=== PATIENT | male | born 1945 | race Caucasian/White ===

== ENCOUNTER 2016-06-22 16:08 | Inpatient (IN) | payer OTHER ==
[2016-06-22] MEDS ORDERED: ZOFRAN INJ 4 MG VIAL IM ONE (16:31)
--- NOTE | 2016-06-22 16:32 | DR.GENAD ---
HPI - PCP Primary Care Physician: bear - Complaint/Symptoms Chief Complaint:: patient stated he started vomiting since lunch today and having back pain. - Nurses notes reviewed Nurses Notes Review: Yes - Source History Provided: Patient - Mode of Arrival Mode of Arrival: Ambulatory - Timing Onset of Chief Complaint: 06/22/16 Came on: Gradually - Duration Duration: Since Onset How lon Duration: Hours - Location Location: STOMACH - Severity Severity: Moderate - Modifying Factors Worsens:: FOOD - Associated Signs and Symptoms Associated Signs and Symptoms: BACK PAIN PMH - PMH Past Medical History: Yes Past Medical History: Diabetes Past Surgical History: No - Family History History of Family Medical Conditions: No - Social History Does patient currently use any type of tobacco product: No Have you used tobacco products in the last 12 months: No Type of Tobacco Use: None Does any household member use tobacco: No Alcohol Use: None Do you use any recreational Drugs:: No Lives With: Family Lives Where: Home - infectious screening In the last 2 months have you had wt loss of >10#?: NO Have you had fever, night sweats or hemotysis?: No Have you traveled outside the country in the last 6 months?: No Isolation: Standard ROS - Review of Systems Constitutional: Weakness Eyes: No Symptoms Reported ENTM: No Symptoms Reported Respiratoy: No Symptoms Reported Cardiovascular: No Symptoms Reported Gastrointestinal/Abdominal: Nausea, Vomiting Genitourinary: No Symptoms Reported Neurological: No Symptoms Reported Musculoskeletal: No Symptoms Reported Integumentary: No Symptoms Reported Hematologic/Lymphatic: No Symptoms Reported Psychiatric: No Symptoms Reported PE - Vital Signs Vitals: Temperature 98.9 F Pulse Rate 61 Respiratory Rate 16 Blood Pressure 113/72 O2 Sat by Pulse Oximetry 100 - General Limitations: No Limitations General Appearance: Alert, In No Apparent Distress - Head Head Exam: Normal Inspection - Eyes Eye exam: EOMI, Nystagmus. negative: Scleral Icterus, Conjunctival Injection - ENT ENT Exam: Mucous Membranes Dry External Ear Exam: Normal External Inspection - Neck Neck Exam: Normal Inspection, Full ROM, Trachea Midline - Respiratory Respiratory Exam: negative: Accessory Muscle Use, Respiratory Distress Respiratory Exam: Bilateral Clear to Auscultation - Cardiovascular Cardiovascular Exam: Regular Rate - Abdominal Exam Abdominal Exam: Normal Inspection, Normal Bowel Sounds, Soft, Distention. negative: Tenderness, Guarding, Rebound - Extremities Extremities Exam: Normal Inspection, Full ROM - Back Back Exam: Normal Inspection - Neurologic Neurological Exam: Alert, Oriented X3, CN II-XII Intact - Psychiatric Psychiatric Exam: Flat Affect - Skin Skin Exam: Intact, Normal Color Course - Consultation Called: 19:50 Call Returned: 19:52 Consultation Comments: CASE DISCUSSED WITH dr. Cardona ADMIT FOR IVF AND ANTIEMETICS ROR - Labs Reviewed Result Diagrams: 06/22/16 16:50 06/22/16 16:50 Laboratory: WBC 13.1 X10^3/uL (3.6-10.0) H 06/22/16 16:50 RBC 3.89 X10^6/uL (4.7-6.0) L 06/22/16 16:50 Hgb 15.5 g/dL (13.5-18.0) 06/22/16 16:50 Hct 45.1 % (42.0-54.0) 06/22/16 16:50 MCV 115.8 fL (80.0-100.0) H 06/22/16 16:50 MCH 39.9 pg (27.0-34.0) H 06/22/16 16:50 MCHC 34.4 g/dL (33.0-35.0) 06/22/16 16:50 RDW 14.3 % (11.6-16.5) 06/22/16 16:50 Plt Count 364 X10^3/uL (150.0-450.0) 06/22/16 16:50 Plt Count Comment Adequate (ADEQUATE) 06/22/16 16:50 MPV 8.1 fL (7.4-11.0) 06/22/16 16:50 Neut % 91.7 % (42.0-75.0) H 06/22/16 16:50 Lymph % 5.9 % (21.0-51.0) L 06/22/16 16:50 [place] % 2.1 % (0.0-13.0) 06/22/16 16:50 Eos % 0.0 % (0.9-2.9) L 06/22/16 16:50 Baso % 0.3 % (0.2-1.0) 06/22/16 16:50 Neut # 12.0 x10^3/uL (2.2-4.8) H 06/22/16 16:50 Lymph # 0.8 X10^3/uL (1.3-2.9) L 06/22/16 16:50 [place] # 0.3 x10^3/uL (0.3-0.8) 06/22/16 16:50 Eos # 0.0 x10^3/uL (0.0-0.2) 06/22/16 16:50 Baso # 0.0 X10^3/uL (0.0-0.1) 06/22/16 16:50 Absolute Nucleated RBC 0.0 /100WBC 06/22/16 16:50 Total Counted 100 06/22/16 16:50 Neutrophils % (Manual) 83 % (39-76) H 06/22/16 16:50 Band Neutrophils % 7 % (0-10) 06/22/16 16:50 Lymphocytes % (Manual) 8 % (13-43) L 06/22/16 16:50 Monocytes % (Manual) 2 % (4-9) L 06/22/16 16:50 Plt Morphology Comment Normal (NORMAL) 06/22/16 16:50 RBC Morphology Abnormal (NORMAL) 06/22/16 16:50 Macrocytosis 3+ A 06/22/16 16:50 Sodium 137 mmol/L (136-145) 06/22/16 16:50 Corrected Sodium 142 mmol/L (136-145) 06/22/16 16:50 Potassium 3.8 mmol/L (3.5-5.1) 06/22/16 16:50 Chloride 98 mmol/L (98-107) 06/22/16 16:50 Carbon Dioxide 22.6 mmol/L (21-32) 06/22/16 16:50 BUN 22 mg/dL (7-18) H 06/22/16 16:50 Creatinine 1.18 mg/dL (0.70-1.30) 06/22/16 16:50 Est GFR (MDRD) Af Amer > 60 (>60) 06/22/16 16:50 Est GFR (MDRD) Non-Af > 60 (>60) 06/22/16 16:50 Glucose 305 mg/dL (65-99) H 06/22/16 16:50 Calcium 9.2 mg/dL (8.5-10.1) 06/22/16 16:50 Acetone, Semi-Quant Negative (NEGATIVE) 06/22/16 19:20 - XRAY XRAY Interpreted by: Radiologist XRAY Findings: aas: nad - Diagnosis Discharge Problem: Intractable vomiting Qualifiers: Vomiting type: unspecified Nausea presence: with nausea Qualified Code(s): R11.2 - Nausea with vomiting, unspecified - Discharge Plan Condition: Stable - Follow ups/Referrals Follow ups/Referrals: LUCILA BARAHONA [Primary Care Provider] - 3 days - Instructions
[2016-06-22] MEDS ORDERED: ZOFRAN INJ 4 MG VIAL IVP ONE ×2 (16:39→17:51)
[2016-06-22] MEDS ORDERED: NS 1000 ML 1,000 ML IV ONE (16:39)
[2016-06-22] MEDS ORDERED: NS 1000 ML 1,000 ML ONE (16:45)
[2016-06-22] MEDS ORDERED: ZOFRAN INJ 4 MG VIAL ONE ×2 (16:45→18:26)
[2016-06-22 17:03] LABS: BASOPHILS % (AUTO) 0.3 % (0.2-1.0); HEMATOCRIT 45.1 % (42.0-54.0); HEMOGLOBIN 15.5 g/dL (13.5-18.0); LYMPHOCYTES # (AUTO) 0.8 X10^3/uL (1.3-2.9); LYMPHOCYTES % (AUTO) 5.9 % (21.0-51.0); MEAN CORPUSCULAR HEMOGLOBIN 39.9 pg (27.0-34.0); MEAN CORPUSCULAR HGB CONC 34.4 g/dL (33.0-35.0); MEAN CORPUSCULAR VOLUME 115.8 fL (80.0-100.0); MEAN PLATELET VOLUME 8.1 fL (7.4-11.0); MONOCYTES # (AUTO) 0.3 x10^3/uL (0.3-0.8); MONOCYTES % (AUTO) 2.1 % (0.0-13.0); NEUTROPHILS % (AUTO) 91.7 % (42.0-75.0); PLATELET COUNT 364 X10^3/uL (150.0-450.0); RED BLOOD COUNT 3.89 X10^6/uL (4.7-6.0); RED CELL DISTRIBUTION WIDTH 14.3 % (11.6-16.5); WHITE BLOOD COUNT 13.1 X10^3/uL (3.6-10.0)
[2016-06-22 17:08] LABS: BLOOD UREA NITROGEN 22 mg/dL (7-18); CALCIUM 9.2 mg/dL (8.5-10.1); CARBON DIOXIDE 22.6 mmol/L (21-32); CHLORIDE 98 mmol/L (98-107); COR NA(FOR HYPERGLY) 142 mmol/L (136-145); CREATININE 1.18 mg/dL (0.70-1.30); GLUCOSE 305 mg/dL (65-99); SODIUM 137 mmol/L (136-145); eGFR BLACK RACES > 60 (>60); eGFR NON BLACK RACES > 60 (>60)
[2016-06-22] MEDS ORDERED: HUMULIN R IV ONE (17:16)
[2016-06-22 17:18] LABS: BAND NEUTROPHILS % 7 % (0-10); PLATELET MORPHOLOGY COMMENT NORMAL (NORMAL)
[2016-06-22] MEDS ORDERED: FLAGYL IV PREMIX 500 MG BAG 500 MG/100 ML BAG IV ONE ×2 (17:24→18:21)
[2016-06-22] MEDS ORDERED: HUMULIN R ONE (18:27)
--- NOTE | 2016-06-22 19:22 | RAD ---
ACUTE ABDOMINAL SERIES CLINICAL HISTORY: 71-year-old male with vomiting and abdominal distention. COMPARISON: None. FINDINGS: PA chest radiograph demonstrates normal cardiopericardial silhouette. There is no focal consolidatio n, pleural effusion or pneumothorax. Pulmonary vascularity is normal. Abdominal radiographs demonstrate a nonobstructive bowel gas pattern. Gas and stool are seen through out the colon. There is no small bowel distention. There is no radiographic evidence of pneumoperito neum. Imaged osseous structures are intact. Soft tissues are unremarkable. IMPRESSION: 1. No acute cardiopulmonary process. 2. Nonobstructive bowel gas pattern without radiographic evidence of pneumoperitoneum. Reported By:
[2016-06-22] MEDS ORDERED: ZOFRAN INJ 4 MG VIAL IVP PRN (19:59)
[2016-06-22] MEDS ORDERED: SNACK - Diabetic Appropriate PO SCH (20:00)
[2016-06-22 20:55] LABS: BILIRUBIN,URINE 2+ (NEGATIVE); BLOOD/HEMOGLOBIN,URINE 1+ (NEGATIVE); GLUCOSE, URINE NEGATIVE (NEGATIVE); KETONES,URINE NEGATIVE (NEGATIVE); LEUKOCYTE ESTERASE ,URINE 1+ (NEGATIVE); NITRITES,URINE NEGATIVE (NEGATIVE); PROTEIN,URINE 2+ (NEGATIVE); UROBILINOGEN,URINE 2+ (NORMAL)
[2016-06-22 20:58] LABS: APPEARANCE,URINE SLIGHTLY HAZY (CLEAR); COLOR,URINE AMBER (YELLOW)
[2016-06-22 21:04] LABS: BACTERIA,URINE NEGATIVE /HPF (NEGATIVE); RBC,URINE RARE /HPF (NEGATIVE); SQUAMOUS EPITHELIAL CELL,UR RARE /HPF (NEGATIVE)
[2016-06-22 21:59] VITALS: BMI 33.0
[2016-06-22] MEDS ORDERED: PHENERGAN INJ 25 MG IV PRN (22:19)
[2016-06-22] MEDS: NS 1000 ML 1,000 ML IV SCH (22:32)
[2016-06-22] MEDS: HUMULIN R SUBCUT PRN (23:53)
[2016-06-23 02:17] LABS: BILIRUBIN,URINE 1+ (NEGATIVE); BLOOD/HEMOGLOBIN,URINE 1+ (NEGATIVE); GLUCOSE, URINE 2+ (NEGATIVE); KETONES,URINE 1+ (NEGATIVE); LEUKOCYTE ESTERASE ,URINE 1+ (NEGATIVE); NITRITES,URINE NEGATIVE (NEGATIVE); PROTEIN,URINE 2+ (NEGATIVE); UROBILINOGEN,URINE 2+ (NORMAL)
[2016-06-23 02:51] LABS: APPEARANCE,URINE CLOUDY (CLEAR); COLOR,URINE AMBER (YELLOW)
[2016-06-23 02:52] LABS: BACTERIA,URINE 1+ /HPF (NEGATIVE); RBC,URINE 0-3 /HPF (NEGATIVE); SQUAMOUS EPITHELIAL CELL,UR RARE /HPF (NEGATIVE)
[2016-06-23] MEDS: NS 1000 ML 1,000 ML IV SCH ×4 (05:48→19:31)
[2016-06-23 06:09] LABS: BASOPHILS % (AUTO) 0.2 % (0.2-1.0); HEMATOCRIT 48.8 % (42.0-54.0); HEMOGLOBIN 16.7 g/dL (13.5-18.0); LYMPHOCYTES # (AUTO) 0.3 X10^3/uL (1.3-2.9); LYMPHOCYTES % (AUTO) 2.6 % (21.0-51.0); MEAN CORPUSCULAR HEMOGLOBIN 39.9 pg (27.0-34.0); MEAN CORPUSCULAR HGB CONC 34.1 g/dL (33.0-35.0); MEAN CORPUSCULAR VOLUME 116.8 fL (80.0-100.0); MEAN PLATELET VOLUME 8.4 fL (7.4-11.0); MONOCYTES # (AUTO) 0.4 x10^3/uL (0.3-0.8); MONOCYTES % (AUTO) 2.8 % (0.0-13.0); NEUTROPHILS # (AUTO) 12.3 x10^3/uL (2.2-4.8); NEUTROPHILS % (AUTO) 94.4 % (42.0-75.0); PLATELET COUNT 309 X10^3/uL (150.0-450.0); RED BLOOD COUNT 4.18 X10^6/uL (4.7-6.0); WHITE BLOOD COUNT 13.1 X10^3/uL (3.6-10.0)
[2016-06-23] MEDS: HUMULIN R SUBCUT PRN ×3 (06:15→17:57)
[2016-06-23 06:31] LABS: ALANINE AMINOTRANSFERASE 126 Units/L (12-78); ALBUMIN 3.5 g/dL (3.4-5.0); ALKALINE PHOSPHATASE 71 Units/L (46-116); ASPARTATE AMINO TRANSFERASE 88 Units/L (15-37); BLOOD UREA NITROGEN 30 mg/dL (7-18); CALCIUM 7.8 mg/dL (8.5-10.1); CARBON DIOXIDE 17.1 mmol/L (21-32); CHLORIDE 101 mmol/L (98-107); COR NA(FOR HYPERGLY) 144 mmol/L (136-145); CREATININE 1.63 mg/dL (0.70-1.30); GLUCOSE 384 mg/dL (65-99); SODIUM 137 mmol/L (136-145); eGFR BLACK RACES 54 (>60); eGFR NON BLACK RACES 45 (>60)
[2016-06-23 07:04] LABS: BAND NEUTROPHILS % 8 % (0-10); PLATELET MORPHOLOGY COMMENT NORMAL (NORMAL)
[2016-06-23] MEDS: CARDIZEM CD 240 MG PO SCH ×2 (07:23→10:34)
[2016-06-23] MEDS ORDERED: [UNRECOGNIZED DRUG - OTHER] PO SCH (10:15)
[2016-06-23] MEDS ORDERED: [UNRECOGNIZED DRUG - OTHER] PO SCH (10:15)
[2016-06-23] MEDS ORDERED: HYDROCHLOROTHIAZIDE 25 MG TAB PO SCH (11:00)
[2016-06-23] MEDS ORDERED: VICTOZA SC SCH (11:00)
[2016-06-23] MEDS ORDERED: HYDREA PO SCH (11:00)
[2016-06-23] MEDS ORDERED: ACCUPRIL PO SCH (11:00)
[2016-06-23] MEDS ORDERED: FOLIC ACID TAB 1 MG PO SCH (11:00)
[2016-06-23] MEDS ORDERED: SINGULAIR TAB 10 MG PO SCH (11:00)
[2016-06-23] MEDS ORDERED: PRILOSEC PO SCH (11:00)
[2016-06-23] MEDS ORDERED: LOPRESSOR INJ 5 MG AMP IVP ONE ×2 (12:14→16:00)
[2016-06-23 12:24] LABS: CKMB % 1.1 % (<4); CREATINE KINASE 113 Units/L (39-308); CREATINE KINASE MB 1.2 ng/mL (0-4.0); TROPONIN I < 0.02 ng/mL (0-1.5)
[2016-06-23 12:44] LABS: AMYLASE 592 Units/L (25-115)
[2016-06-23 12:59] LABS: LIPASE 5508 Units/L (73-393)
[2016-06-23] MEDS ORDERED: PROTONIX INJ 40 MG VIAL 80 MG in NS 100 ML IV 80 ML IV SCH (15:00)
--- NOTE | 2016-06-23 15:03 | DR.H&P ---
H&P - History & Physical for Day of: H&P Date: 06/22/16 - Chief Complaint Chief Complaint: NAUSEA, VOMITING - Allergies Allergies/Adverse Reactions: Allergies Allergy/AdvReac Type Severity Reaction Status Date / Time No Known Drug Allergy Allergy Verified 06/22/16 16:13 - History of Present Illness History of Present Illness: THIS IS A 71 YEAR OLD PATIENT, WHO IS FOLLOWED IN OUR OFFICE BY ZULEIMA ALMONTE. PATIENT PRESENTS TO THE EMERGENCY ROOM REPORTING NAUSEA WITH VOMITING SINCE LUNCH TODAY. HE ALSO REPORTS ABDOMEN AND BACK PAIN. HE REPORTS SYMPTOMS WORSEN WITH FOOD. SYMPTOMS HAVE BEEN ON-GOING FOR 5 HOURS. PATIENT REPORTS HE IS UNABLE TO HOLD DOWN ANY PO FLUIDS. PATIENT IS NOTED WITH RIGHT UPPER QUADRANT PAIN UPON PALPATION. PATIENT RATES ABDOMINAL PAIN AN 8 ON A 1-TO-10 PAIN SCALE. CBC WNL EXCEPT: WBC 13.1. BMP WNL EXCEPT: BUN 22, GLUCOSE 305. ACUTE ABDOMINAL SERIES REPORTS NO ACUTE CARDIOPULMONARY PROCESS; NONOBSTRUCTIVE BOWEL GAS PATTERN WITHOUT RADIOGRAPHIC EVIDENCE OF PNEUMOPERITONEUM. PATIENT RECEIVED AN IV FLUID BOLUS, FLAGYL IV, AND TWO DOSES OF ZOFRAN IV IN THE EMERGENCY ROOM. WE WILL ADMIT PATIENT FOR FURTHER TREATMENT AND EVALUATION. PATIENT WILL BE STARTED ON IV FLUIDS AND ANTIEMETICS. - Past Medical History Past Medical History: Diabetes, Dyslipidemia, GERD, Hypertension Additional Medical History: Skin Cancer, BPH, Sinus Tachycardia - Past Surgical History Surgical History: No History - Family History Family Medical History: Cancer Family History Comment: Father Lung Cancer - Social History Does patient currently use any type of tobacco product: No Have you used tobacco products in the last 12 months: No Type of Tobacco Use: None Does any household member use tobacco: No Alcohol Use: None Drug Use: None - Medications Home Medications: Folic Acid [Folic Acid] 1 mg PO DAILY 06/22/16 [History Confirmed 06/22/16] Hydrochlorothiazide [Hydrochlorothiazide] 25 mg PO DAILY 06/22/16 [History Confirmed 06/22/16] RX: Aspirin [Aspirin Adult Low Dose] 81 mg PO HS 06/22/16 [History Confirmed ] RX: Diltiazem HCl Extended Release [Diltiazem HCl ER] 240 mg PO DAILY 06/22/16 [ History Confirmed 06/22/16] RX: Hydroxyurea 3 cap PO DAILY 06/22/16 [History Confirmed 06/22/16] RX: Liraglutide [Victoza] 6 units SC DAILY 06/22/16 [History Confirmed 06/22/16] RX: Metformin HCl 1 tab PO BID 06/22/16 [History Confirmed 06/22/16] RX: Metoprolol Succinate [Toprol Xl] 25 mg PO HS 06/22/16 [History Confirmed ] RX: Montelukast Sodium [Singulair] 1 tab PO DAILY 06/22/16 [History Confirmed ] RX: Omeprazole 1 cap PO DAILY 06/22/16 [History Confirmed 06/22/16] RX: Quinapril HCl 10 mg PO DAILY 06/22/16 [History Confirmed 06/22/16] RX: Rivaroxaban [Xarelto] 20 mg PO DAILY 06/22/16 [History Confirmed 06/22/16] Simvastatin [Simvastatin] 20 mg PO HS 06/22/16 [History Confirmed 06/22/16] Tamsulosin HCl [Tamsulosin HCl] 0.4 mg PO HS 06/22/16 [History Confirmed ] - Review of Systems Constitutional: Weakness, Malaise Eyes: No Symptoms Reported. denies: Pain, Vision Change, Conjunctivae Inflammation, Eyelid Inflammation, Redness ENT: No Symptoms Reported. denies: Ear Pain, Ear Discharge, Nose Pain, Nose Discharge, Nose Congestion, Mouth Pain, Mouth Swelling, Throat Pain, Throat Swelling Respiratory: No Symptoms Reported. denies: Cough, Shortness of Breath, Hemoptysis, SOB with Excertion, Pleuritic Pain, Sputum, Wheezing Cardiovascular: No Symptoms Reported. denies: Chest Pain, Palpitations, Orthopnea, Paroxysmal Noc. Dyspnea, Edema, Light Headedness Gastrointestinal: Nausea, Vomiting, Abdominal Pain. denies: Diarrhea, Constipation, Melena, Hematochezia Genitourinary: No Symptoms Reported. denies: Dysuria, Frequency, Incontinence, Hematuria, Retention Musculoskeletal: Back Pain. denies: Shoulder Pain, Arm Pain, Hand Pain, Leg Pain, Foot Pain, Neck Pain Skin: No Symptoms Reported. denies: Rash, Lesions, Jaundice, Bruising, Wound, Ecchymosis Neurological: No Symptoms Reported. denies: Weakness, Numbness, Incoordination , Change in Speech, Confusion, Seizures - Physical Exam Vital Signs: Temperature 97.7 F Pulse Rate [Right Radial] 129 Respiratory Rate 34 Blood Pressure [Left Arm] 111/75 O2 Sat by Pulse Oximetry 95 Oriented: Normal, Time, Person, Place Eyes: Normal. negative: Blurred Vision, Diplopia, Discharge, Pain, Redness, Photophobia Ear: Normal. negative: Swelling, Ecchymosis, Hemotypanum, Abrasion, Laceration Nose: Normal. negative: Injected, Discharge, Blood Throat: Dry. negative: Tonsillar Hypertrophy, Exudate Respiratory: Clear Throughout Cardiovascular: Normal. negative: Murmur, Edema : Normal. negative: Dysuria, Hematuria, Frequency, Discharge, Testicular Pain Auscultation: Bowel Sounds: Decreased. negative: Bruit Palpation: Normal. negative: Spleen Enlarged, Liver Enlarged, Mass Pulsatile Tenderness: RUQ, Severe. negative: Rebound, Guarding, Rigidity Skin: Decreased Turgur. negative: Diaphoresis, Wound, Bruising, Ecchymosis Musculoskeletal: Instability Psychiatric: Normal Mood Description: Calm, Appropriate Affect: Normal Speech Pattern: Clear, Appropriate - Assessment/Plan (1) Intractable vomiting Qualifiers: Vomiting type: unspecified Nausea presence: with nausea Qualified Code(s) : R11.2 - Nausea with vomiting, unspecified Status: Acute Plan: ADMIT PATIENT, START IV FLUIDS AND ANTIEMETICS, MONITOR LABS. (2) RUQ abdominal pain Status: Acute Plan: ABOVE. (3) Dehydration Status: Acute Plan: ABOVE. (4) Sinus tachycardia Status: Chronic Plan: CONTINUE CARDIZEM, MONITOR. (5) Diabetes type 2, uncontrolled Qualifiers: Diabetes mellitus complication status: with hyperglycemia Diabetes mellitus complication detail: D Diabetic retinopathy severity: D Proliferative retinopathy type: P Diabetes mellitus macular edema: D Diabetes mellitus regional sales coordinator insulin use: without regional sales coordinator use Laterality: L Chronic kidney disease stage: C Qualified Code(s): E11.65 - Type 2 diabetes mellitus with hyperglycemia Status: Chronic Plan: START OTBS WITH INSULIN R SLIDING SCALE COVERAGE, MONITOR. (6) Hypertension Qualifiers: Hypertension type: essential hypertension Qualified Code(s): I10 - Essential (primary) hypertension Status: Chronic (7) Hyperlipidemia Qualifiers: Hyperlipidemia type: mixed hyperlipidemia Qualified Code(s): E78.2 - Mixed hyperlipidemia Status: Chronic (8) BPH (benign prostatic hyperplasia) Qualifiers: Prostatic enlargement morphology: non-nodular Lower urinary tract symptom presence: symptoms present Qualified Code(s): N40.1 - Benign prostatic hyperplasia with lower urinary tract symptoms Status: Chronic
--- NOTE | 2016-06-23 15:29 | PCM.PROG ---
Progress Note - Progress Note for Day of Date: 06/23/16 - Subjective Subjective: PATIENT IS REPORTING RIGHT UPPER QUADRANT ABDOMINAL PAIN CONTINUES. HE IS NOTED WITH SEVERE TENDERNESS UPON PALPATION TO RUQ AND GENERALIZED ABDOMINAL DISTENTION. HE CONTINUES WITH NAUSEA AND VOMITING AND CONTINUES ON IV ZOFRAN. HEART RATE TACHYCARDIC, RATE 140'S. CBC WNL EXCEPT: WBC 13.1. CMP WNL EXCEPT: BUN/CREAT 30/1.63, GFR 45, GLUCOSE 384, CALCIUM 7.8, TOT BILIRUBIN 1.20, AST 88, ALT 126, AMYLASE 592, LIPASE 5508. WE WILL OBTAIN CT OF ABD/ PELVIS TODAY, CARDIAC ENZYMES AND EKG'S, ADMINISTER ONE DOSE OF LOPRESSOR 5MG IV FOR TACHYCARDIA. WE WILL ALSO OBTAIN A GALLBLADDER US AND HOLD NPO. WE WILL CONITNUE IV FLUIDS AND ANTIEMETICS. - Past Medical Family Social History Past Med/Fam/Surg Hx: No changes since H&P Allergies: Allergies No Known Drug Allergy Allergy (Verified 06/22/16 16:13) - Review of Systems ROS: No change since H&P - Vital Signs and I&O's Vital Signs: Temperature 97.7 F Pulse Rate [Right Radial] 129 Respiratory Rate 34 Blood Pressure [Left Arm] 111/75 O2 Sat by Pulse Oximetry 95 Intake and Output: Intake & Output 06/21/16 06/22/16 06/23/16 06/24/16 11:59 11:59 11:59 11:59 Intake Total 615 Balance 615 - Physical Exam Oriented: Normal, Time, Person, Place Eyes: Normal. negative: Blurred Vision, Diplopia, Discharge, Pain, Redness, Photophobia Ear: Normal. negative: Swelling, Ecchymosis, Hemotypanum, Abrasion, Laceration Nose: Normal. negative: Injected, Discharge, Blood Throat: Dry. negative: Tonsillar Hypertrophy, Exudate Respiratory: Normal Cardiovascular: Normal. negative: Murmur, Edema : Normal. negative: Dysuria, Hematuria, Frequency, Discharge, Testicular Pain Auscultation: Bowel Sounds: Decreased. negative: Bruit Palpation: Normal. negative: Spleen Enlarged, Liver Enlarged, Mass Pulsatile Tenderness: RUQ, Severe, Other (Abdominal distention). negative: Rebound, Guarding, Rigidity Skin: Decreased Turgur. negative: Diaphoresis, Wound, Bruising, Ecchymosis Musculoskeletal: Instability Psychiatric: Normal Mood Description: Calm, Appropriate Affect: Normal Speech Pattern: Clear, Appropriate - Laboratory and Diagnostics Result Diagrams: 06/23/16 04:40 06/23/16 04:40 Labs: Laboratory WBC 13.1 X10^3/uL (3.6-10.0) H 06/23/16 04:40 RBC 4.18 X10^6/uL (4.7-6.0) L 06/23/16 04:40 Hgb 16.7 g/dL (13.5-18.0) 06/23/16 04:40 Hct 48.8 % (42.0-54.0) 06/23/16 04:40 MCV 116.8 fL (80.0-100.0) H 06/23/16 04:40 MCH 39.9 pg (27.0-34.0) H 06/23/16 04:40 MCHC 34.1 g/dL (33.0-35.0) 06/23/16 04:40 RDW 14.0 % (11.6-16.5) 06/23/16 04:40 Plt Count 309 X10^3/uL (150.0-450.0) 06/23/16 04:40 Plt Count Comment Adequate (ADEQUATE) 06/23/16 04:40 MPV 8.4 fL (7.4-11.0) 06/23/16 04:40 Neut % 94.4 % (42.0-75.0) H 06/23/16 04:40 Lymph % 2.6 % (21.0-51.0) L 06/23/16 04:40 [place] % 2.8 % (0.0-13.0) 06/23/16 04:40 Eos % 0.0 % (0.9-2.9) L 06/23/16 04:40 Baso % 0.2 % (0.2-1.0) 06/23/16 04:40 Neut # 12.3 x10^3/uL (2.2-4.8) H 06/23/16 04:40 Lymph # 0.3 X10^3/uL (1.3-2.9) L 06/23/16 04:40 [place] # 0.4 x10^3/uL (0.3-0.8) 06/23/16 04:40 Eos # 0.0 x10^3/uL (0.0-0.2) 06/23/16 04:40 Baso # 0.0 X10^3/uL (0.0-0.1) 06/23/16 04:40 Absolute Nucleated RBC 0.0 /100WBC 06/23/16 04:40 Total Counted 100 06/23/16 04:40 Neutrophils % (Manual) 84 % (39-76) H 06/23/16 04:40 Band Neutrophils % 8 % (0-10) 06/23/16 04:40 Lymphocytes % (Manual) 3 % (13-43) L 06/23/16 04:40 Monocytes % (Manual) 5 % (4-9) 06/23/16 04:40 Plt Morphology Comment Normal (NORMAL) 06/23/16 04:40 RBC Morphology Abnormal (NORMAL) 06/23/16 04:40 Macrocytosis 3+ A 06/23/16 04:40 Sodium 137 mmol/L (136-145) 06/23/16 04:40 Corrected Sodium 144 mmol/L (136-145) 06/23/16 04:40 Potassium 4.6 mmol/L (3.5-5.1) 06/23/16 04:40 Chloride 101 mmol/L (98-107) 06/23/16 04:40 Carbon Dioxide 17.1 mmol/L (21-32) L 06/23/16 04:40 BUN 30 mg/dL (7-18) H 06/23/16 04:40 Creatinine 1.63 mg/dL (0.70-1.30) H 06/23/16 04:40 Est GFR (MDRD) Af Amer 54 (>60) L 06/23/16 04:40 Est GFR (MDRD) Non-Af 45 (>60) L 06/23/16 04:40 Glucose 384 mg/dL (65-99) H 06/23/16 04:40 Calcium 7.8 mg/dL (8.5-10.1) L 06/23/16 04:40 Corrected Calcium TNP 06/23/16 04:40 Total Bilirubin 1.20 mg/dL (0.2-1.0) H 06/23/16 04:40 AST 88 Units/L (15-37) H 06/23/16 04:40 ALT 126 Units/L (12-78) H 06/23/16 04:40 Alkaline Phosphatase 71 Units/L (46-116) 06/23/16 04:40 Creatine Kinase 113 Units/L (39-308) 06/23/16 11:20 CK-MB (CK-2) 1.2 ng/mL (0-4.0) 06/23/16 11:20 CK/CKMB % Calc 1.1 % (<4) 06/23/16 11:20 Troponin I < 0.02 ng/mL (0-1.5) 06/23/16 11:20 Total Protein 7.0 g/dL (6.4-8.2) 06/23/16 04:40 Albumin 3.5 g/dL (3.4-5.0) 06/23/16 04:40 Globulin 3.5 g/dL (2.5-4.5) 06/23/16 04:40 Albumin/Globulin Ratio 1.0 Ratio (1.1-2.1) L 06/23/16 04:40 Amylase 592 Units/L (25-115) H 06/23/16 11:20 Lipase 5508 Units/L (73-393) H 06/23/16 11:20 Specimen Type Clean catch urine 06/23/16 01:46 Urine Color [place] (YELLOW) 06/23/16 01:46 Urine Appearance Cloudy (CLEAR) 06/23/16 01:46 Urine pH 5.0 (5.0 - 8.0) 06/23/16 01:46 Ur Specific [place] 1.025 (1.000-1.030) 06/23/16 01:46 Urine Protein 2+ (NEGATIVE) 06/23/16 01:46 Urine Glucose (UA) 2+ (NEGATIVE) 06/23/16 01:46 Urine Ketones 1+ (NEGATIVE) 06/23/16 01:46 Urine Occult Blood 1+ (NEGATIVE) 06/23/16 01:46 Urine Nitrite Negative (NEGATIVE) 06/23/16 01:46 Urine Bilirubin 1+ (NEGATIVE) 06/23/16 01:46 Urine Urobilinogen 2+ (NORMAL) 06/23/16 01:46 Ur Leukocyte Esterase 1+ (NEGATIVE) 06/23/16 01:46 Urine RBC 0-3 /HPF (NEGATIVE) 06/23/16 01:46 Urine WBC 2-6 /HPF (NEGATIVE) 06/23/16 01:46 Ur Squamous Epith Cells Rare /HPF (NEGATIVE) 06/23/16 01:46 Urine Bacteria 1+ /HPF (NEGATIVE) 06/23/16 01:46 Ur Culture Indicated? Yes/culture set up 06/23/16 01:46 Acetone, Semi-Quant Negative (NEGATIVE) 06/22/16 19:20 H. pylori IgG Antibody Negative (NEGATIVE) 06/23/16 04:40 - Plan (1) RUQ abdominal pain Status: Acute Plan: CHECK H-PYLORI, OBTAIN CT OF ABD/PELVIS, GALLBLADDER US, HOLD NPO, CONTINUE IV FLUIDS AND ZOFRAN. (2) Sinus tachycardia Status: Acute Plan: OBTAIN SERIAL CARDIAC ENZYMES AND EKG'S, ADMINISTER ONE DOSE OF LOPRESSOR IV, CONTINUE CARDIZEM, TOPROL XL, MONITOR. (3) Intractable vomiting Status: Acute Qualifiers: Vomiting type: unspecified Nausea presence: with nausea Qualified Code(s) : R11.2 - Nausea with vomiting, unspecified Plan: CONTINUE IV FLUIDS AND ANTIEMETICS, MONITOR LABS. (4) Dehydration Status: Acute Plan: ABOVE. (5) Diabetes type 2, uncontrolled Status: Chronic Qualifiers: Diabetes mellitus complication status: with hyperglycemia Diabetes mellitus complication detail: D Diabetic retinopathy severity: D Proliferative retinopathy type: P Diabetes mellitus macular edema: D Diabetes mellitus product development carpenter insulin use: without product development carpenter use Laterality: L Chronic kidney disease stage: C Qualified Code(s): E11.65 - Type 2 diabetes mellitus with hyperglycemia Plan: CONTINUE OTBS WITH INSULIN R SLIDING SCALE COVERAGE, MONITOR. (6) Hypertension Status: Chronic Qualifiers: Hypertension type: essential hypertension Qualified Code(s): I10 - Essential (primary) hypertension (7) Hyperlipidemia Status: Chronic Qualifiers: Hyperlipidemia type: mixed hyperlipidemia Qualified Code(s): E78.2 - Mixed hyperlipidemia (8) BPH (benign prostatic hyperplasia) Status: Chronic Qualifiers: Prostatic enlargement morphology: non-nodular Lower urinary tract symptom presence: symptoms present Qualified Code(s): N40.1 - Benign prostatic hyperplasia with lower urinary tract symptoms
[2016-06-23] MEDS ORDERED: MORPHINE SULFATE INJ 2 MG IVP PRN (16:00)
[2016-06-23] MEDS ORDERED: TOPROL XL PO SCH ×2 (16:00→21:00)
[2016-06-23 16:08] LABS: ALBUMIN 3.2 g/dL (3.4-5.0); COR CA(FOR HYPOALB) 7.4 mg/dL (8.5-10.1); TOTAL PROTEIN 6.6 g/dL (6.4-8.2)
[2016-06-23] MEDS ORDERED: LANOXIN INJ ONE (16:31)
[2016-06-23 16:41] LABS: CKMB % 0.9 % (<4); CREATINE KINASE 108 Units/L (39-308); TROPONIN I < 0.02 ng/mL (0-1.5)
[2016-06-23] MEDS ORDERED: CARDIZEM INJ 50 MG VIAL IVP ONE ×2 (16:46→19:09)
[2016-06-23] MEDS ORDERED: LOVENOX INJ 30 MG SYR SC SCH (17:00)
[2016-06-23] MEDS ORDERED: FLAGYL IV PREMIX 500 MG BAG 500 MG/100 ML BAG IV SCH (17:00)
[2016-06-23] MEDS ORDERED: GLUCOPHAGE PO SCH (17:00)
[2016-06-23] MEDS ORDERED: CIPRO IV 400 MG PREMIX* 400 MG/200 ML IV.SOLN. IV SCH (17:00)
[2016-06-23 17:16] LABS: CREATININE 2.34 mg/dL (0.70-1.30)
--- NOTE | 2016-06-23 17:41 | US ---
Indication: Pain. Exam: Gallbladder ultrasound . Technique: Transverse and longitudinal grayscale and color Doppler images were obtained of the right upper quadrant . Findings: The liver measures 18 cm along the midclavicular line and there is increased echogenicity throughout. There is hepatopetal flow in the portal vein and visualized hepatic veins and IVC are un remarkable . The gallbladder is normal size with multiple echogenic foci layering posteriorly near t he neck region which are shadowing posteriorly. There is mild wall thickening measuring up to 3.7 mm with no wall edema or pericholecystic fluid . The common duct measures 4.6 mm. There is pain upon c ompression of the gallbladder. The pancreas is not well visualized due to overlying bowel gas . The right kidney measures 11 cm in length and is normal in echogenicity with no hydronephrosis. Impression: Cholelithiasis with mild wall thickening and pain upon compression of the gallbladder which can be s een cholecystitis. Mild hepatomegaly and probable fibrofatty changes throughout the parenchyma. Reported By:
[2016-06-23] MEDS ORDERED: NEXTERONE IV 150 MG PREMIX* 100 ML IV ONE (18:26)
[2016-06-23] MEDS ORDERED: NEXTERONE IV 360 MG PREMIX* 200 ML IV PRN ×2 (18:30)
--- NOTE | 2016-06-23 18:35 | CT ---
HISTORY: Right upper quadrant abdominal pain and vomiting Study: CT abdomen and pelvis without contrast Comparison: None Technique: Multiple axial images of the abdomen and pelvis were obtained from the lung bases to the pubic symph ysis after/ without/ both prior to and after the administration of IV contrast. Findings: There is a tiny left pleural effusion and there are increased markings at both lung bases , left mor e than right. There is severe stranding of fat planes about the pancreas and the uncinate process and head of the pancreas is enlarged. The liver and spleen and kidneys are unremarkable.. There are numerous tiny gallstones layering out near the neck of the gallbladder. No definite common bile duct dilatation is demonstrated.. There is free fluid going down the colic gutters, left more than righ t.. There is thickening of Gerota's fascia. No bowel wall thickening or bowel dilatation is present . There is sigmoid diverticulosis.. Prostate is enlarged measuring 6.[address] and elevating the base of the urinary bladder. The bony structures are grossly intact. IMPRESSION: 1. Severe pancreatitis 2. Cholelithiasis 3. Enlarged prostate 4. Minimal left pleural effusion and subsegmental atelectasis or pneumonitis at the lung bases Reported By:
[2016-06-23] MEDS ORDERED: HEPARIN SODIUM IN D5W 25,000 UNITS/500 ML BAG IV PRN (19:03)
[2016-06-23] MEDS ORDERED: HEPARIN SODIUM INJ 5000 UNITS ONE (19:17)
[2016-06-23 19:37] LABS: BASOPHILS % (AUTO) 0.2 % (0.2-1.0); HEMATOCRIT 50.7 % (42.0-54.0); HEMOGLOBIN 16.5 g/dL (13.5-18.0); LYMPHOCYTES # (AUTO) 0.6 X10^3/uL (1.3-2.9); LYMPHOCYTES % (AUTO) 3.3 % (21.0-51.0); MEAN CORPUSCULAR HEMOGLOBIN 39.1 pg (27.0-34.0); MEAN CORPUSCULAR HGB CONC 32.6 g/dL (33.0-35.0); MEAN CORPUSCULAR VOLUME 120.1 fL (80.0-100.0); MEAN PLATELET VOLUME 8.5 fL (7.4-11.0); MONOCYTES # (AUTO) 0.8 x10^3/uL (0.3-0.8); MONOCYTES % (AUTO) 4.9 % (0.0-13.0); NEUTROPHILS # (AUTO) 15.6 x10^3/uL (2.2-4.8); NEUTROPHILS % (AUTO) 91.6 % (42.0-75.0); PLATELET COUNT 273 X10^3/uL (150.0-450.0); RED BLOOD COUNT 4.22 X10^6/uL (4.7-6.0); RED CELL DISTRIBUTION WIDTH 15.3 % (11.6-16.5); WHITE BLOOD COUNT 17.1 X10^3/uL (3.6-10.0)
[2016-06-23 19:44] LABS: BILIRUBIN,URINE 1+ (NEGATIVE); BLOOD/HEMOGLOBIN,URINE 3+ (NEGATIVE); GLUCOSE, URINE 2+ (NEGATIVE); KETONES,URINE 1+ (NEGATIVE); LEUKOCYTE ESTERASE ,URINE 1+ (NEGATIVE); NITRITES,URINE NEGATIVE (NEGATIVE); PROTEIN,URINE 3+ (NEGATIVE); UROBILINOGEN,URINE 1+ (NORMAL)
[2016-06-23 20:00] LABS: APPEARANCE,URINE HAZY (CLEAR); COLOR,URINE YELLOW (YELLOW); RBC,URINE 0-5 /HPF (NEGATIVE)
[2016-06-23] MEDS ORDERED: SNACK - Diabetic Appropriate PO SCH (20:00)
[2016-06-23 20:01] LABS: BACTERIA,URINE TRACE /HPF (NEGATIVE); SQUAMOUS EPITHELIAL CELL,UR NEGATIVE /HPF (NEGATIVE)
[2016-06-23] MEDS ORDERED: HEPARIN SODIUM INJ 5000 UNITS IVP ONE (20:01)
[2016-06-23 20:04] LABS: BAND NEUTROPHILS % 12 % (0-10)
[2016-06-23 20:05] LABS: PLATELET MORPHOLOGY COMMENT NORMAL (NORMAL)
[2016-06-23 20:12] LABS: CKMB % 0.8 % (<4); CREATINE KINASE 172 Units/L (39-308); CREATINE KINASE MB 1.4 ng/mL (0-4.0); TROPONIN I < 0.02 ng/mL (0-1.5)
[2016-06-23] MEDS ORDERED: XARELTO PO SCH (21:00)
[2016-06-23] MEDS ORDERED: FLOMAX PO SCH (21:00)
[2016-06-23] MEDS ORDERED: ASPIRIN EC 81 MG PO SCH (21:00)
[2016-06-23] MEDS ORDERED: ZOCOR TAB 20 MG PO SCH (21:00)
[2016-06-23 22:41] VITALS: BP 102/69
[2016-06-24] MEDS ORDERED: LANOXIN INJ IVP ONE (16:44)
== END 2016-06-23 20:55 | disposition short-term general hospital (02) | DRG 392 ==
LOC: ER 16:21 → ICU 19:56 → OBSVTOIN 06-23 08:00
PROVIDERS: ADMIT Internal Medicine; ATTEND Internal Medicine
DX: R11.2 Nausea with vomiting, unspecified (principal); R10.11 Right upper quadrant pain; E86.0 Dehydration; R00.0 Tachycardia, unspecified; E78.2 Mixed hyperlipidemia; M54.89 Other dorsalgia; K21.9 Gastro-esophageal reflux disease without esophagitis; I10 Essential (primary) hypertension; E11.65 Type 2 diabetes mellitus with hyperglycemia; N40.1 Benign prostatic hyperplasia with lower urinary tract symptoms; I48.91 Unspecified atrial fibrillation
CPT/HCPCS: 36415; 74022; 74176; 76705; 80048; 80053; 81001; 82009; 82150; 82550; 82553; 83690; 84484; 85025; 85730; 86677; 87040; 87086; 93005; 96365; 96367; 96372; 96374; 96375; 99284; A4216; A4222; C9113; S0030; G0378; J0744; J1160; J1644; J1650; J1815; J2405; J2550; J3490